=== PATIENT | male | born 1960 | race African-American/Black ===

== ENCOUNTER 2024-06-08 03:48 | Day surgery (SDC) | payer BC, OTHER ==
[2024-06-03 15:05] VITALS: BMI 33.5
[2024-06-08 06:53] VITALS: RESP 18
[2024-06-08] MEDS ORDERED: MIDAZOLAM HCL 2 MG/2 ML SINGLE DOSE VIAL ONE (07:54)
[2024-06-08 13:16] VITALS: BP 170/91; PULSE 60
[2024-06-08 13:17] VITALS: TEMP 98
== END 2024-06-08 11:30 | disposition home or self-care (01) ==
LOC: JASU-SURG 03:48
PROVIDERS: ATTEND Urology
PROC: 0TF4XZZ Fragmentation in Left Kidney Pelvis, External Approach (ICD-10-PCS; principal; 2024-06-08 08:00)
DX: N20.0 Calculus of kidney (principal)
CPT/HCPCS: 82962